=== PATIENT | female | born 1960 | race Caucasian/White ===

== ENCOUNTER → 2019-02-06 | Outpatient (CLI) | payer OTHER ==
--- NOTE | 2019-02-06 14:48 | XR ---
EXAMINATION TYPE: DATE OF EXAM: 02/06/2019 CLINICAL HISTORY: Degenerative disc disease, left lower back pain that is chronic. TECHNIQUE: Frontal, lateral, and oblique images of the lumbar spine are obtained. COMPARISON: None FINDINGS: There are 5 lumbar type vertebral bodies identified. The lumbar spine shows satisfactory alignment without evidence of acute fracture. Very minimal retrolisthesis of L3 on L4 is seen. Interv ertebral disc space narrowing is present at L5-S1. Facet arthropathy is present at L4-L5 and L5-S1. S mall anterior osteophytes are present within the lumbar spine. Vertebral body heights and disk space heights are within normal limits. The oblique images appear within normal limits. The overlying so ft tissue appears unremarkable. Extensive atherosclerosis is seen of the abdominal aorta with caliber measuring up to 2.7 cm, upper limits of normal but nonaneurysmal. IMPRESSION: No acute fracture is seen in the lumbar spine. Mild multilevel degenerative disc disease of the lumbar spine. Minimal retrolisthesis of L3 on L4 is likely on a degenerative basis.
== END | disposition home or self-care (01) ==
LOC: RADXRMAIN 13:59
PROVIDERS: ATTEND Family Medicine
DX: M51.36 Other intervertebral disc degeneration, lumbar region (principal)
CPT/HCPCS: 72110

== ENCOUNTER 2021-06-17 15:27 | Emergency (ER) | payer OTHER ==
[2021-06-17 15:50] VITALS: TEMP 98.2
[2021-06-17] MEDS ORDERED: FAMOTIDINE 20 MG/2 ML VIAL IV STA (17:30)
[2021-06-17] MEDS ORDERED: SODIUM CHLORIDE 0.9% 1,000 ML IV STA (17:30)
[2021-06-17] MEDS ORDERED: DICYCLOMINE 10 MG/ML 2 ML AMP IM STA (17:30)
[2021-06-17] MEDS ORDERED: ONDANSETRON 4 MG/2 ML VIAL IVP STA (17:30)
--- NOTE | 2021-06-17 17:33 | ED ---
General Adult HPI - General Chief complaint: Nausea/Vomiting/Diarrhea Stated complaint: vomiting Time Seen by Provider: 06/17/21 17:00 Source: patient, RN notes reviewed Mode of arrival: ambulatory Limitations: no limitations - History of Present Illness Initial comments: Patient is a pleasant 60-year-old female presenting to the emergency department with nausea vomiting. Onset of symptoms was just a morning. Patient is vomited multiple times. Patient has decreased oral intake. Patient is also had several episodes of diarrhea. No black or bloody stools. First episode of emesis did appear dark. Other ones have not. No fever. Patient has occasional abdominal cramping, mild, none at this time. No fever. - Related Data Home Medications Medication Instructions Recorded Confirmed Albuterol Sulfate [Proair Hfa] 2 puff INHALATION RT-Q4H PRN 06/17/21 06/17/21 Amitriptyline HCl [Elavil] 100 mg PO HS 06/17/21 06/17/21 Apixaban [Eliquis] 5 mg PO BID 06/17/21 06/17/21 Atorvastatin Calcium [Lipitor] 40 mg PO HS 06/17/21 06/17/21 Butalb/Acetaminophen/Caffeine 1 tab PO QID PRN 06/17/21 06/17/21 [Esgic 50-325-40 mg Tablet] Cyclobenzaprine [Flexeril] 10 mg PO TID PRN 06/17/21 06/17/21 Levothyroxine Sodium [Synthroid] 25 mcg PO MOTUWETHFRSA 06/17/21 06/17/21 Levothyroxine Sodium [Synthroid] 50 mcg PO YUNG 06/17/21 06/17/21 Sertraline HCl [Zoloft] 200 mg PO DAILY 06/17/21 06/17/21 atenoloL [Tenormin] 25 mg PO DAILY 06/17/21 06/17/21 lamoTRIgine 200 mg PO DAILY 06/17/21 06/17/21 Previous Rx's Medication Instructions Recorded Ondansetron Odt [Zofran Odt] 4 mg PO Q8HR PRN #10 tab 06/17/21 Allergies Allergy/AdvReac Type Severity Reaction Status Date / Time No Known Allergies Allergy Verified 06/17/21 17:38 Review of Systems ROS Statement: Those systems with pertinent positive or pertinent negative responses have been documented in the HPI. ROS Other: All systems not noted in ROS Statement are negative. Constitutional: Denies: fever, chills Eyes: Denies: eye pain ENT: Denies: ear pain Respiratory: Denies: cough Cardiovascular: Denies: chest pain Endocrine: Denies: fatigue Gastrointestinal: Reports: as per HPI, nausea, vomiting, diarrhea. Denies: hematemesis, melena, hematochezia Genitourinary: Denies: dysuria Musculoskeletal: Denies: back pain Skin: Denies: rash Neurological: Denies: weakness Past Medical History Past Medical History: Hypertension History of Any Multi-Drug Resistant Organisms: None Reported Past Surgical History: Pacemaker Past Psychological History: Bipolar, PTSD Smoking Status: Current some day smoker Past Alcohol Use History: None Reported Past Drug Use History: None Reported General Exam Limitations: no limitations General appearance: alert, in no apparent distress Head exam: Present: normocephalic Eye exam: Present: normal appearance Neck exam: Present: normal inspection Respiratory exam: Present: normal lung sounds bilaterally Cardiovascular Exam: Present: regular rate, normal rhythm GI/Abdominal exam: Present: soft, normal bowel sounds. Absent: distended, tenderness, guarding, rebound, rigid, pulsatile mass Extremities exam: Present: normal inspection Neurological exam: Present: alert Psychiatric exam: Present: normal affect, normal mood Skin exam: Present: normal color Course Vital Signs 06/17/21 15:46 Temperature 98.2 F Pulse Rate 78 Respiratory 18 Rate Blood Pressure 103/70 O2 Sat by Pulse 98 Oximetry EKG Findings - EKG Comments: EKG Findings:: Sinus rhythm rate of 71. WI 140. QRS 85. QT 385. QTC 408. Normal axis. Normal QRS. No acute ST change Medical Decision Making - Medical Decision Making Patient reevaluated and resting comfortably in bed, improved following medications. Patient updated on results and need for follow-up. - Lab Data Result diagrams: 06/17/21 18:41 06/17/21 18:41 Lab Results 06/17/21 06/17/21 06/17/21 Range/Units 18:41 18:41 19:50 WBC 7.9 (3.8-10.6) k/uL RBC 4.82 (3.80-5.40) m/uL Hgb 14.2 (11.4-16.0) gm/dL Hct 42.8 (34.0-46.0) % MCV 88.9 (80.0-100.0) fL MCH 29.6 (25.0-35.0) pg MCHC 33.3 (31.0-37.0) g/dL RDW 13.5 (11.5-15.5) % Plt Count 356 (150-450) k/uL MPV 6.9 Neutrophils % 65 % Lymphocytes % 23 % Monocytes % 6 % Eosinophils % 2 % Basophils % 1 % Neutrophils # 5.1 (1.3-7.7) k/uL Lymphocytes # 1.8 (1.0-4.8) k/uL Monocytes # 0.5 (0-1.0) k/uL Eosinophils # 0.2 (0-0.7) k/uL Basophils # 0.1 (0-0.2) k/uL Sodium 134 L (137-145) mmol/L Potassium 4.3 (3.5-5.1) mmol/L Chloride 104 (98-107) mmol/L Carbon Dioxide 22 (22-30) mmol/L Anion Gap 8 mmol/L BUN 22 H (7-17) mg/dL Creatinine 0.74 (0.52-1.04) mg/dL Est GFR (CKD-EPI)AfAm >90 (>60 ml/min/1.73 sqM) Est GFR (CKD-EPI)NonAf 88 (>60 ml/min/1.73 sqM) Glucose 109 H (74-99) mg/dL Calcium 9.5 (8.4-10.2) mg/dL Total Bilirubin 0.5 (0.2-1.3) mg/dL AST 29 (14-36) U/L ALT 17 (4-34) U/L Alkaline Phosphatase 100 (38-126) U/L Total Protein 7.5 (6.3-8.2) g/dL Albumin 4.0 (3.5-5.0) g/dL Amylase 53 (30-110) U/L Lipase 40 (23-300) U/L Coronavirus (PCR) Not Detected (Not Detectd) Disposition Clinical Impression: Vomiting Disposition: HOME SELF-CARE Condition: Stable Instructions (If sedation given, give patient instructions): Acute Nausea and Vomiting (ED) Additional Instructions: [id number] Pepcid. Prescription for nausea medicine has been sent to your pharmacy. Please follow-up with primary care physician in the next day or 2 for recheck. Return for uncontrolled vomiting, not tolerating fluids, fevers, increased pain, worsening or change in symptoms or other concerns. Prescriptions: Ondansetron Odt [Zofran Odt] 4 mg PO Q8HR PRN #10 tab PRN Reason: Nausea Is patient prescribed a controlled substance at d/c from ED?: No Referrals: Va Fay MD [Primary Care Provider] - 1-2 days Time of Disposition: 20:40
[2021-06-17 18:55] LABS: Basophils # (A) 0.1 k/uL (0-0.2); Basophils % (A) 1 %; Eosinophils # (A) 0.2 k/uL (0-0.7); Eosinophils % (A) 2 %; HCT 42.8 % (34.0-46.0); HGB 14.2 gm/dL (11.4-16.0); Lymphocytes # (A) 1.8 k/uL (1.0-4.8); Lymphocytes % (A) 23 %; MCH 29.6 pg (25.0-35.0); MCHC 33.3 g/dL (31.0-37.0); MCV 88.9 fL (80.0-100.0); Mean Platelet Volume 6.9; Monocytes # (A) 0.5 k/uL (0-1.0); Monocytes % (A) 6 %; Neutrophils # (A) 5.1 k/uL (1.3-7.7); Neutrophils % (A) 65 %; Platelet Count 356 k/uL (150-450); RBC 4.82 m/uL (3.80-5.40); RDW 13.5 % (11.5-15.5); WBC 7.9 k/uL (3.8-10.6)
[2021-06-17 19:12] LABS: ALT 17 U/L (4-34); AST 29 U/L (14-36); African American GFR (CKD) >90 (>60 ml/min/1.73 sqM); Alkaline Phosphatase 100 U/L (38-126); Amylase 53 U/L (30-110); Anion Gap 8 mmol/L; Blood Urea Nitrogen 22 mg/dL (7-17); Calcium 9.5 mg/dL (8.4-10.2); Carbon Dioxide 22 mmol/L (22-30); Chloride 104 mmol/L (98-107); Glucose 109 mg/dL (74-99); Lipase 40 U/L (23-300); Non-African American GFR(CKD) 88 (>60 ml/min/1.73 sqM); Potassium 4.3 mmol/L (3.5-5.1); Sodium 134 mmol/L (137-145); Total Bilirubin 0.5 mg/dL (0.2-1.3); Total Protein 7.5 g/dL (6.3-8.2)
[2021-06-17] MEDS ORDERED: ACETAMINOPHEN TAB 325 MG TAB PO STA (20:54)
[2021-06-17 22:17] VITALS: BP 127/72; PULSE 68; RESP 16
== END 2021-06-17 22:18 | disposition home or self-care (01) ==
LOC: EC 15:27
DX: R11.2 Nausea with vomiting, unspecified (principal); R19.7 Diarrhea, unspecified; F17.200 Nicotine dependence, unspecified, uncomplicated; I10 Essential (primary) hypertension; Z79.899 Other long term (current) drug therapy; Z20.822 Contact with and (suspected) exposure to COVID-19
CPT/HCPCS: 36415; 80053; 82150; 83690; 85025; 87635; 99284; 96374; 96375; 96361; 96372; J0500; J2405

== ENCOUNTER 2022-04-13 15:49 | Emergency (ER) | payer OTHER ==
--- NOTE | 2022-04-13 17:42 | XR ---
EXAMINATION TYPE: XR chest 2V DATE OF EXAM: 04/13/2022 COMPARISON: NONE HISTORY: Productive cough. TECHNIQUE: Frontal and lateral views of the chest are obtained. FINDINGS: There is no focal air space opacity, pleural effusion, or pneumothorax seen. The cardiac silhouette size is within normal limits. Dual-lead pacemaker is noted. The osseous structures are in tact. IMPRESSION: No acute pulmonary infiltrate.
--- NOTE | 2022-04-13 17:53 | ED ---
URI HPI - General Chief Complaint: Upper Respiratory Infection Stated Complaint: cough Time Seen by Provider: 04/13/22 16:03 Source: patient Mode of arrival: ambulatory Limitations: no limitations - History of Present Illness Initial Comments: Patient is a 61-year-old female presenting with chief complaint of cough. Patient states that she had a cough for the last 2 weeks. It is productive of white sputum. Patient does admit to smoking half pack per day. She admits to body aches and fatigue. Admits to sore throat. No congestion, chest pain, dif ficulty breathing, nausea, vomiting, abdominal pain. Patient states she had a negative Covid test at home today. - Related Data Home Medications Medication Instructions Recorded Confirmed Albuterol Sulfate [Proair Hfa] 2 puff INHALATION RT-Q4H PRN 06/17/21 06/17/21 Amitriptyline HCl [Elavil] 100 mg PO HS 06/17/21 06/17/21 Apixaban [Eliquis] 5 mg PO BID 06/17/21 06/17/21 Atorvastatin Calcium [Lipitor] 40 mg PO HS 06/17/21 06/17/21 Butalb/Acetaminophen/Caffeine 1 tab PO QID PRN 06/17/21 06/17/21 [Esgic 50-325-40 mg Tablet] Cyclobenzaprine [Flexeril] 10 mg PO TID PRN 06/17/21 06/17/21 Levothyroxine Sodium [Synthroid] 25 mcg PO MOTUWETHFRSA 06/17/21 06/17/21 Levothyroxine Sodium [Synthroid] 50 mcg PO YUNG 06/17/21 06/17/21 Sertraline HCl [Zoloft] 200 mg PO DAILY 06/17/21 06/17/21 atenoloL [Tenormin] 25 mg PO DAILY 06/17/21 06/17/21 lamoTRIgine 200 mg PO DAILY 06/17/21 06/17/21 Previous Rx's Medication Instructions Recorded Ondansetron Odt [Zofran Odt] 4 mg PO Q8HR PRN #10 tab 06/17/21 Albuterol Sulfate [Albuterol 1 puff PO Q4-6H PRN #8.5 gm 04/13/22 Sulfate Hfa] Azithromycin [Zithromax Z Pack] 1 tab PO DIRECTED #6 tab 04/13/22 methylPREDNISolone Dose Pack 4 mg PO DIRECTED #1 packet 04/13/22 [Medrol Dose Pack] Allergies Allergy/AdvReac Type Severity Reaction Status Date / Time latex Allergy Rash/Hives Verified 04/13/22 15:54 Review of Systems ROS Statement: Those systems with pertinent positive or pertinent negative responses have been documented in the HPI. ROS Other: All systems not noted in ROS Statement are negative. Past Medical History Past Medical History: Hypertension History of Any Multi-Drug Resistant Organisms: None Reported Past Surgical History: Pacemaker Past Psychological History: Bipolar, PTSD Smoking Status: Current some day smoker Past Alcohol Use History: None Reported Past Drug Use History: None Reported General Exam Limitations: no limitations General appearance: alert, in no apparent distress Head exam: Present: atraumatic, normocephalic, normal inspection Eye exam: Present: normal appearance ENT exam: Present: normal exam, normal oropharynx, mucous membranes moist, TM's normal bilaterally Neck exam: Present: normal inspection, full ROM Respiratory exam: Present: normal lung sounds bilaterally. Absent: respiratory distress, wheezes, rales, rhonchi, stridor Cardiovascular Exam: Present: regular rate, normal rhythm, normal heart sounds. Absent: systolic murmur, diastolic murmur, rubs, gallop, clicks Neurological exam: Present: alert, oriented X3, CN II-XII intact Psychiatric exam: Present: normal affect, normal mood Skin exam: Present: warm, dry, intact, normal color. Absent: rash Course Vital Signs 04/13/22 04/13/22 04/13/22 15:50 17:13 18:47 Temperature 98.5 F Pulse Rate 74 74 Respiratory 16 20 Rate Blood Pressure 185/86 O2 Sat by Pulse 97 Oximetry 04/13/22 04/13/22 18:53 18:56 Temperature 98.8 F Pulse Rate 74 80 Respiratory 18 Rate Blood Pressure 163/97 O2 Sat by Pulse 98 Oximetry Medical Decision Making - Medical Decision Making Patient is a 61-year-old female presenting with chief complaint of productive cough for the last 2 weeks. On physical examination heart and lungs are clear to auscultation and vital signs are stable. Patient is negative for Covid, influenza, RSV. Chest x-ray shows no acute cardiopulmonary process. Patient's symptoms are likely consistent with acute bronchitis. Will treat with Z-Antony, Medrol Dosepak, and albuterol inhaler. Patient is agreeable with this plan. Follow-up with PCP. Report back to ER with any new or worsening symptoms. Discussed return parameters and answered all questions. Patient conveyed verbal understanding and agreed to the plan. I discussed this case in detail with my attending Dr. Tucker Was pt. sent in by a medical professional or institution? @ No Did you speak to anyone other than the patient for history? @ No Did you review nursing and triage notes? @ Reviewed and agree Were old charts reviewed? @ No Differential Diagnosis? @ Differential includes pneumonia, bronchitis, viral illness, pulmonary embolism, sinusitis, this is not meant to be a comprehensive list EKG interpreted by me (3pts min.)? @ [none] X-rays interpreted by me (1pt min.)? @ X-ray interpreted by myself as well as the radiologist, shows no evidence of acute cardiopulmonary process CT interpreted by me (1pt min.)? @ [none] U/S interpreted by me (1pt. min.)? @ [none] What testing was considered but not performed? (CT, X-rays, U/S, labs)? Why? @ CBC and CMP were considered for infectious process, however do not believe will change the course of sedation treatment plan. Patient does not have presentation consistent with pulmonary embolism, d-dimer is not necessary at this time What meds were considered but not given? Why? @ [none] Did you discuss the management of the patient with other professionals? @ Case discussed with my attending Dr. Tucker Did you reconcile home meds? @ [none] Was smoking cessation discussed for >3mins.? @ [none] Was critical care preformed (if so, how long)? @ [none] Were there social determinants of health that impacted care today? How? (Homelessness, low income, unemployed, alcoholism, drug addiction, t ransportation, low edu. Level, literacy, decrease access to med. care, group home, rehab)? @ No Was there de-escalation of care discussed even if they declined? (Discuss DNR or withdrawal of care, Hospice)? @ No What co-morbidities impacted this encounter? (DM, HTN, Smoking, COPD, CAD, Cancer, CVA, Hep., AIDS, mental health diagnosis, sleep apnea, morbid obesity)? @Hypertension Was patient admitted / discharged? @Patient was discharged home, treated for acute bronchitis with azithromycin, Medrol Dosepak, and albuterol inhaler. Undiagnosed new problem with uncertain prognosis? @ [none] Drug Therapy requiring intensive monitoring for toxicity (Heparin, Nitro, Insulin, Cardizem)? @ [none] Were any procedures done? @ [none] Diagnosis/symptom? @Acute bronchitis Acute, or Chronic, or Acute on Chronic? @Acute Uncomplicated (without systemic symptoms) or Complicated (systemic symptoms)? @uncomplicated Side effects of treatment? @ [none] Exacerbation, Progression, or Severe Exacerbation] @ [no] Poses a threat to life or bodily function? @ [no] - Lab Data Lab Results 04/13/22 Range/Units 16:49 Influenza Type A (PCR) Not Detected (Not Detectd) Influenza Type B (PCR) Not Detected (Not Detectd) RSV (PCR) Not Detected (Not Detectd) SARS-CoV-2 (PCR) Not Detected (Not Detectd) Disposition Clinical Impression: Bronchitis Disposition: HOME SELF-CARE Condition: Good Instructions (If sedation given, give patient instructions): Acute Bronchitis (ED) Additional Instructions: Follow-up with PCP. Report back to ER with any new or worsening symptoms. Take medication as prescribed. Prescriptions: Albuterol Sulfate [Albuterol Sulfate Hfa] 1 puff PO Q4-6H PRN #8.5 gm PRN Reason: Cough methylPREDNISolone Dose Pack [Medrol Dose Pack] 4 mg PO DIRECTED #1 packet Azithromycin [Zithromax Z Pack] 1 tab PO DIRECTED #6 tab Is patient prescribed a controlled substance at d/c from ED?: No Referrals: Va Fay MD [Primary Care Provider] - 1-2 days Time of Disposition: 18:43
[2022-04-13] MEDS ORDERED: IPRATROPIUM-ALBUTEROL 3 ML NEB INHALATION STA (18:23)
[2022-04-13 18:59] VITALS: BP 163/97; PULSE 80; RESP 18; TEMP 98.8
== END 2022-04-13 18:56 | disposition home or self-care (01) ==
LOC: EC 15:49
DX: J40 Bronchitis, not specified as acute or chronic (principal); I10 Essential (primary) hypertension; F17.200 Nicotine dependence, unspecified, uncomplicated; F31.9 Bipolar disorder, unspecified; Z88.3 Allergy status to other anti-infective agents; Z20.822 Contact with and (suspected) exposure to COVID-19
CPT/HCPCS: 71046; 87636; 94640; 99283

== ENCOUNTER 2023-03-04 05:42 | Emergency (ER) | payer OTHER ==
[2023-03-04 06:00] VITALS: RESP 18
[2023-03-04] MEDS ORDERED: KETOROLAC 15 MG/ML 1 ML VIAL IVP STA ×2 (06:11→07:33)
[2023-03-04] MEDS ORDERED: DIPH,PERTUS(ACELL)TETVAC-LF 0.5 ML VIAL IM ONE (06:11)
[2023-03-04] MEDS ORDERED: HYDROmorphone 1 MG/ML 1 ML SYRINGE IVP STA (06:11)
[2023-03-04] MEDS ORDERED: LIDOCAINE 1% INJ 10MG/ML (20 ML MDV) SQ ONE (06:11)
[2023-03-04] MEDS ORDERED: AMPICILLIN-SULBACTAM 3 GM in SODIUM CHLORIDE 0.9% 100 ML IVPB STA (06:12)
--- NOTE | 2023-03-04 06:32 | ED ---
Animal Bite HPI - General Chief Complaint: Animal Bite Stated Complaint: Hand injury Time Seen by Provider: 03/04/23 05:58 Source: patient, RN notes reviewed Mode of arrival: ambulatory Limitations: no limitations - History of Present Illness Initial Comments: This is a 62-year-old female who presents to the emergency department for a dog bite to the left hand. Patient was with her sister who has two Chows. They were getting into a fight and she tried to break them up, when one of them proceeded to bite her left hand. The dogs are up-to-date on all immunizations. Patient is unsure when her last tetanus vaccine was. MD Complaint: animal bite - Related Data Home Medications Medication Instructions Recorded Confirmed Albuterol Sulfate [Proair Hfa] 2 puff INHALATION RT-Q4H PRN 06/17/21 06/17/21 Amitriptyline HCl [Elavil] 100 mg PO HS 06/17/21 06/17/21 Apixaban [Eliquis] 5 mg PO BID 06/17/21 06/17/21 Atorvastatin Calcium [Lipitor] 40 mg PO HS 06/17/21 06/17/21 Butalb/Acetaminophen/Caffeine 1 tab PO QID PRN 06/17/21 06/17/21 [Esgic 50-325-40 mg Tablet] Cyclobenzaprine [Flexeril] 10 mg PO TID PRN 06/17/21 06/17/21 Levothyroxine Sodium [Synthroid] 25 mcg PO MOTUWETHFRSA 06/17/21 06/17/21 Levothyroxine Sodium [Synthroid] 50 mcg PO YUNG 06/17/21 06/17/21 Sertraline HCl [Zoloft] 200 mg PO DAILY 06/17/21 06/17/21 atenoloL [Tenormin] 25 mg PO DAILY 06/17/21 06/17/21 lamoTRIgine 200 mg PO DAILY 06/17/21 06/17/21 Previous Rx's Medication Instructions Recorded Ondansetron Odt [Zofran Odt] 4 mg PO Q8HR PRN #10 tab 06/17/21 Albuterol Sulfate [Albuterol 1 puff PO Q4-6H PRN #8.5 gm 04/13/22 Sulfate Hfa] Azithromycin [Zithromax Z Pack] 1 tab PO DIRECTED #6 tab 04/13/22 methylPREDNISolone Dose Pack 4 mg PO DIRECTED #1 packet 04/13/22 [Medrol Dose Pack] Amoxic-Pot Clav 875-125Mg 1 tab PO Q12HR 10 Days #20 tab 03/04/23 [Augmentin 875-125] HYDROcodone/APAP 5-325MG [[place] 1 tab PO Q6HR PRN 3 Days #12 tab 03/04/23 5-325] Allergies Allergy/AdvReac Type Severity Reaction Status Date / Time latex Allergy Rash/Hives Verified 03/04/23 05:55 Review of Systems ROS Statement: Those systems with pertinent positive or pertinent negative responses have been documented in the HPI. ROS Other: All systems not noted in ROS Statement are negative. Past Medical History Past Medical History: Hypertension History of Any Multi-Drug Resistant Organisms: None Reported Past Surgical History: Pacemaker Past Psychological History: Bipolar, PTSD Smoking Status: Current some day smoker Past Alcohol Use History: None Reported Past Drug Use History: Marijuana General Exam Limitations: no limitations General appearance: alert, in distress Head exam: Present: atraumatic, normocephalic, normal inspection Respiratory exam: Present: normal lung sounds bilaterally. Absent: respiratory distress, wheezes, rales, rhonchi, stridor Cardiovascular Exam: Present: regular rate, normal rhythm, normal heart sounds. Absent: systolic murmur, diastolic murmur, rubs, gallop, clicks Extremities exam: Present: other (4cm flap laceration to the dorsal aspect of the left hand with visible tendon. Multiple other smaller and more superificial scattered lacerations) Neurological exam: Present: alert, oriented X3, CN II-XII intact Psychiatric exam: Present: normal affect, normal mood Course Vital Signs 03/04/23 03/04/23 03/04/23 05:53 07:00 08:05 Temperature 98.5 F Pulse Rate 77 67 68 Respiratory 18 18 18 Rate Blood Pressure 149/77 145/69 148/73 O2 Sat by Pulse 98 97 98 Oximetry Procedures - Laceration Laceration #1 Consent Obtained: verbal consent Indication: laceration Site: other (left hand) Size (cm): 4 Description: linear, flap Depth: simple, single layer Anesthetic Used: lidocaine 1% Anesthesia Technique: local infiltration Amount (mls): 5 Pre-repair: wound explored, irrigated extensively Type of Sutures: nylon Size of Sutures: 5-0 Number of Sutures: 6 Technique: simple, interrupted Laceration #2 Consent Obtained: verbal consent Indication: laceration Site: other (left middle finger) Size (cm): 2 Description: linear Depth: simple, single layer Anesthetic Used: lidocaine 1% Anesthesia Technique: local infiltration Amount (mls): 3 Pre-repair: wound explored, irrigated extensively Type of Sutures: nylon Size of Sutures: 5-0 Number of Sutures: 3 Technique: simple, interrupted Laceration #3 Consent Obtained: verbal consent Indication: laceration Site: other (left fourth finger) Size (cm): 2 Description: linear Depth: simple, single layer Anesthetic Used: lidocaine 1% Anesthesia Technique: local infiltration Amount (mls): 2 Pre-repair: wound explored, irrigated extensively Type of Sutures: nylon Size of Sutures: 5-0 Number of Sutures: 3 Technique: simple, interrupted Medical Decision Making - Medical Decision Making This is a 62-year-old female who presents to the emergency department for a dog bite. Was pt. sent in by a medical professional or institution? @ -No Did you speak to anyone other than the patient for history? @ -No Did you review nursing and triage notes? @ -Yes, and I agree, it is accurate with regards to the patient's symptoms. Were old charts reviewed? @ -No Differential Diagnosis? @ -Not applicable EKG interpreted by me (3pts min.)? @ -Not obtained X-rays interpreted by me (1pt min.)? @ -Not obtained CT interpreted by me (1pt min.)? @ -Not obtained U/S interpreted by me (1pt. min.)? @ -Not obtained What testing was considered but not performed? (CT, X-rays, U/S, labs)? Why? @ -None What meds were considered but not given? Why? @ -None Did you discuss the management of the patient with other professionals? @ -No Did you reconcile home meds? @ -No Was smoking cessation discussed for >3mins.? @ -No Was critical care preformed (if so, how long)? @ -No Were there social determinants of health that impacted care today? How? (Homelessness, low income, unemployed, alcoholism, drug addiction, transportation, low edu. Level, literacy, decrease access to med. care, long-term, rehab)? @ -No Was there de-escalation of care discussed even if they declined? (Discuss DNR or withdrawal of care, Hospice)? @ -No What co-morbidities impacted this encounter? (DM, HTN, Smoking, COPD, CAD, Cancer, CVA, Hep., AIDS, mental health diagnosis, sleep apnea, morbid obesity)? @ -None Was patient admitted / discharged? @ -Discharged. Patient's hand was thoroughly cleansed. Tetanus vaccine was updated. She was given a dose of Unasyn in the emergency department. 3 of the bite wounds were fairly deep and required repair with sutures. These were loosely approximated to allow for drainage due to the infection risk. There were other multiple superficial wounds that did not require repair. She was given prescriptions for Mil[place] and Augmentin with dosing instructions reviewed. I was willing to give her a prescription for the Mil[place] given that she is on Eliquis and cannot take NSAIDs, and given the extent of the wound. She was given strict return parameters and advised that this is at high risk for infection. She was discharged home in stable condition with instructions to return in 7-10 days for suture removal. Undiagnosed new problem with uncertain prognosis? @ -None Drug Therapy requiring intensive monitoring for toxicity (Heparin, Nitro, Insulin, Cardizem)? @ -None Were any procedures done? @ -Laceration repair with sutures Diagnosis/symptom? @ -Dog bite Acute, or Chronic, or Acute on Chronic? @ -Acute Uncomplicated (without systemic symptoms) or Complicated (systemic symptoms)? @ -Uncomplicated Side effects of treatment? @ -None Exacerbation, Progression, or Severe Exacerbation] @ -Not applicable Poses a threat to life or bodily function? @ -No Return precautions reviewed in depth, the patient is instructed to return to the emergency department with any new, worsening, or concerning symptoms. Patient verbalized understanding. This case was discussed in detail with the attending ED physician, Dr. Tucker. Presentation, findings, and treatment plan discussed in detail as well. Disposition Clinical Impression: Dog bite Disposition: HOME SELF-CARE Instructions (If sedation given, give patient instructions): Animal Bite (ED), Care For Your Stitches (ED) Additional Instructions: Return to the emergency department with any new, worsening, or concerning symptoms and in 7-10 days for removal of the stitches. Take the antibiotic as prescribed for 10 days. Take the Mil[place] sparingly when your pain is the most severe and be aware that it may make you drowsy. Follow up with your primary care provider in 1-2 days. Prescriptions: Amoxic-Pot Clav 875-125Mg [Augmentin 875-125] 1 tab PO Q12HR 10 Days #20 tab HYDROcodone/APAP 5-325MG [[place] 5-325] 1 tab PO Q6HR PRN 3 Days #12 tab PRN Reason: Pain Is patient prescribed a controlled substance at d/c from ED?: Yes When asked, does pt state using other controlled substances?: No If prescribed controlled substance>3 days was MAPS reviewed?: Prescribed <3 Days Referrals: Va Fay MD [Primary Care Provider] - 1-2 days
[2023-03-04] MEDS ORDERED: HYDROmorphone 0.5 MG/0.5 ML SYRINGE IVP STA (07:33)
[2023-03-04 08:23] VITALS: BP 148/73
[2023-03-04 09:14] VITALS: PULSE 62; TEMP 98.1
== END 2023-03-04 09:05 | disposition home or self-care (01) ==
LOC: EC 05:42
DX: S61.215A Laceration without foreign body of left ring finger without damage to nail, initial encounter (principal); S61.213A Laceration without foreign body of left middle finger without damage to nail, initial encounter; I10 Essential (primary) hypertension; F31.9 Bipolar disorder, unspecified; F17.200 Nicotine dependence, unspecified, uncomplicated; F12.90 Cannabis use, unspecified, uncomplicated; Z91.040 Latex allergy status; Z79.01 Long term (current) use of anticoagulants; Z23 Encounter for immunization; Z79.899 Other long term (current) drug therapy; W54.0XXA Bitten by dog, initial encounter
CPT/HCPCS: 90715; 99283; 96365; 96375 ×2; 96376 ×2; 12004; 90471; J2001; J1170 ×2; J0295; J1885

== ENCOUNTER 2023-07-04 13:22 | Emergency (ER) | payer OTHER ==
[2023-07-04 13:31] VITALS: RESP 16
--- NOTE | 2023-07-04 13:51 | ED ---
GI Bleed HPI - General Chief complaint: GI Bleed Stated complaint: Vomiting w/blood Time Seen by Provider: 07/04/23 13:35 Source: patient, RN notes reviewed Mode of arrival: ambulatory Limitations: no limitations - History of Present Illness Initial comments: This is a 62-year-old female who presents to the emergency department for an episode of hematemesis. States that last night she felt generally unwell, and proceeded to vomit. States that when she threw up, it was essentially all dark red blood. However, states that when she threw up it was onto dark pavement so she cannot be entirely sure of the shade of red. She has not thrown up or felt nauseous since, but states that she does have a headache. She is on Eliquis for a-fib. Denies any history of similar symptoms in the past. Also denies any blood in her stool or dark/tarry stool. MD complaint: gross hematemesis - Related Data Home Medications Medication Instructions Recorded Confirmed Albuterol Sulfate [Proair Hfa] 2 puff INHALATION RT-Q4H PRN 06/17/21 06/17/21 Amitriptyline HCl [Elavil] 100 mg PO HS 06/17/21 06/17/21 Apixaban [Eliquis] 5 mg PO BID 06/17/21 06/17/21 Atorvastatin Calcium [Lipitor] 40 mg PO HS 06/17/21 06/17/21 Butalb/Acetaminophen/Caffeine 1 tab PO QID PRN 06/17/21 06/17/21 [Esgic 50-325-40 mg Tablet] Cyclobenzaprine [Flexeril] 10 mg PO TID PRN 06/17/21 06/17/21 Levothyroxine Sodium [Synthroid] 25 mcg PO MOTUWETHFRSA 06/17/21 06/17/21 Levothyroxine Sodium [Synthroid] 50 mcg PO YUNG 06/17/21 06/17/21 Sertraline HCl [Zoloft] 200 mg PO DAILY 06/17/21 06/17/21 atenoloL [Tenormin] 25 mg PO DAILY 06/17/21 06/17/21 lamoTRIgine 200 mg PO DAILY 06/17/21 06/17/21 Previous Rx's Medication Instructions Recorded Ondansetron Odt [Zofran Odt] 4 mg PO Q8HR PRN #10 tab 06/17/21 Albuterol Sulfate [Albuterol 1 puff PO Q4-6H PRN #8.5 gm 04/13/22 Sulfate Hfa] Azithromycin [Zithromax Z Pack] 1 tab PO DIRECTED #6 tab 04/13/22 methylPREDNISolone Dose Pack 4 mg PO DIRECTED #1 packet 04/13/22 [Medrol Dose Pack] Amoxic-Pot Clav 875-125Mg 1 tab PO Q12HR 10 Days #20 tab 03/04/23 [Augmentin 875-125] HYDROcodone/APAP 5-325MG [[place] 1 tab PO Q6HR PRN 3 Days #12 tab 03/04/23 5-325] Ondansetron Odt [Zofran Odt] 4 mg PO Q8HR PRN #15 tab 07/04/23 Pantoprazole [Protonix] 40 mg PO DAILY #15 tab 07/04/23 Allergies Allergy/AdvReac Type Severity Reaction Status Date / Time latex Allergy Rash/Hives Verified 06/28/23 16:17 Review of Systems ROS Statement: Those systems with pertinent positive or pertinent negative responses have been documented in the HPI. ROS Other: All systems not noted in ROS Statement are negative. Past Medical History Past Medical History: Hypertension History of Any Multi-Drug Resistant Organisms: None Reported Past Surgical History: Pacemaker Past Psychological History: Bipolar, PTSD Smoking Status: Current some day smoker Past Alcohol Use History: None Reported Past Drug Use History: Marijuana General Exam Limitations: no limitations General appearance: alert, in no apparent distress Head exam: Present: atraumatic, normocephalic, normal inspection Respiratory exam: Present: normal lung sounds bilaterally. Absent: respiratory distress, wheezes, rales, rhonchi, stridor Cardiovascular Exam: Present: regular rate, normal rhythm, normal heart sounds. Absent: systolic murmur, diastolic murmur, rubs, gallop, clicks GI/Abdominal exam: Present: soft, normal bowel sounds. Absent: distended, tenderness, guarding, rebound, rigid Neurological exam: Present: alert, oriented X3, CN II-XII intact Psychiatric exam: Present: normal affect, normal mood Skin exam: Present: warm, dry, intact, normal color. Absent: rash Course Vital Signs 07/04/23 07/04/23 13:28 16:21 Temperature 97.6 F 98.7 F Pulse Rate 88 87 Respiratory 16 16 Rate Blood Pressure 167/89 169/87 O2 Sat by Pulse 97 97 Oximetry Medical Decision Making - Medical Decision Making This is a 62 year old female who presents to the emergency department for an episode of hematemesis. Was pt. sent in by a medical professional or institution? @ -No Did you speak to anyone other than the patient for history? @ -No Did you review nursing and triage notes? @ -Yes, and I agree, it is accurate with regards to the patient's symptoms. Were old charts reviewed? @ -No Differential Diagnosis? @ -Differential GI Bleed: Esophageal varices, aortoenteric fistula, Yojana-Akers, gastritis, peptic ulcer disease, diverticulosis, inflammatory bowel disease, hemorrhoids, fissure, colitis, malignancy, Meckels diverticulum, this is not meant to be an all- inclusive list. EKG interpreted by me (3pts min.)? @ -EKG interpreted by me demonstrating the following: Sinus rhythm. Ventricular rate 69 bpm, MA interval 157 ms, QRS duration 93 ms, QTc 409 ms. X-rays interpreted by me (1pt min.)? @ -Not obtained CT interpreted by me (1pt min.)? @ -CTA of the abdomen and pelvis obtained. My interpretation identifies no evidence of an active GI bleed. U/S interpreted by me (1pt. min.)? @ -Not obtained What testing was considered but not performed? (CT, X-rays, U/S, labs)? Why? @ -None What meds were considered but not given? Why? @ -None Did you discuss the management of the patient with other professionals? @ -No Did you reconcile home meds? @ -No Was smoking cessation discussed for >3mins.? @ -No Was critical care preformed (if so, how long)? @ -No Were there social determinants of health that impacted care today? How? (Homelessness, low income, unemployed, alcoholism, drug addiction, transportation, low edu. Level, literacy, decrease access to med. care, [facility], rehab)? @ -No Was there de-escalation of care discussed even if they declined? (Discuss DNR or withdrawal of care, Hospice)? @ -No What co-morbidities impacted this encounter? (DM, HTN, Smoking, COPD, CAD, Cancer, CVA, Hep., AIDS, mental health diagnosis, sleep apnea, morbid obesity)? @ -A-fib. Was patient admitted / discharged? @ -Discharged. Lab work demonstrates signs of dehydration and a mildly elevated lactic acid. Hemoglobin WNL. COVID, influenza, and RSV testing negative. Recommended a stool occult, however patient refused. CTA of the abdomen and pelvis obtained. No definitive active GI bleeding was identified. She does have a questionable area of thickening in the antral region of the stomach of indeterminate etiology. They advised direct visualization to exclude malignancy. Symptoms well controlled in the emergency department. Strongly recommended admission for observation, however patient refused and states that she will return if anything worsens or changes. Rx for pantoprazole and zofran provided with dosing instructions reviewed. Advised Tylenol as needed for pain relief. Patient discharged home in stable condition with strict return parameters and advised to follow up with her PCP. Undiagnosed new problem with uncertain prognosis? @ -None Drug Therapy requiring intensive monitoring for toxicity (Heparin, Nitro, Insulin, Cardizem)? @ -None Were any procedures done? @ -None Diagnosis/symptom? @ -Hematemesis Acute, or Chronic, or Acute on Chronic? @ -Acute Uncomplicated (without systemic symptoms) or Complicated (systemic symptoms)? @ -Uncomplicated Side effects of treatment? @ -None Exacerbation, Progression, or Severe Exacerbation] @ -Not applicable Poses a threat to life or bodily function? @ -No Return precautions reviewed in depth, the patient is instructed to return to the emergency department with any new, worsening, or concerning symptoms. Patient verbalized understanding. This case was discussed in detail with the attending ED physician, Dr. Patton. Presentation, findings, and treatment plan discussed in detail as well. - Lab Data Result diagrams: 07/04/23 14:20 07/04/23 14:20 Lab Results 07/04/23 07/04/23 07/04/23 Range/Units 14:20 14:20 14:20 WBC 8.9 (3.8-10.6) k/uL RBC 4.49 (3.80-5.40) m/uL Hgb 13.0 (11.4-16.0) gm/dL Hct 40.1 (34.0-46.0) % MCV 89.1 (80.0-100.0) fL MCH 28.9 (25.0-35.0) pg MCHC 32.5 (31.0-37.0) g/dL RDW 14.1 (11.5-15.5) % Plt Count 317 (150-450) k/uL MPV 7.8 Neutrophils % 71 % Lymphocytes % 19 % Monocytes % 4 % Eosinophils % 4 % Basophils % 1 % Neutrophils # 6.3 (1.3-7.7) k/uL Lymphocytes # 1.7 (1.0-4.8) k/uL Monocytes # 0.4 (0-1.0) k/uL Eosinophils # 0.4 (0-0.7) k/uL Basophils # 0.0 (0-0.2) k/uL PT 10.1 (10.0-12.5) sec INR 0.9 (<1.2) APTT 25.6 (22.0-30.0) sec Sodium 139 (137-145) mmol/L Potassium 4.3 (3.5-5.1) mmol/L Chloride 112 H (98-107) mmol/L Carbon Dioxide 20 L (22-30) mmol/L Anion Gap 7 mmol/L BUN 19 H (7-17) mg/dL Creatinine 0.55 (0.52-1.04) mg/dL Est GFR (CKD-EPI)AfAm >90 (>60 ml/min/1.73 sqM) Est GFR (CKD-EPI)NonAf >90 (>60 ml/min/1.73 sqM) Glucose 117 H (74-99) mg/dL Lactic Ac Sepsis Rflx Plasma Lactic Acid Jorge Luis (0.7-2.0) mmol/L Calcium 9.4 (8.4-10.2) mg/dL Magnesium 1.8 (1.6-2.3) mg/dL Total Bilirubin 0.3 (0.2-1.3) mg/dL AST 23 (14-36) U/L ALT 15 (4-34) U/L Alkaline Phosphatase 121 (38-126) U/L Troponin I (0.000-0.034) ng/mL Total Protein 7.2 (6.3-8.2) g/dL Albumin 4.2 (3.5-5.0) g/dL Lipase 216 (23-300) U/L Influenza Type A (PCR) (Not Detectd) Influenza Type B (PCR) (Not Detectd) RSV (PCR) (Not Detectd) SARS-CoV-2 (PCR) (Not Detectd) 07/04/23 07/04/23 07/04/23 Range/Units 14:20 14:20 14:46 WBC (3.8-10.6) k/uL RBC (3.80-5.40) m/uL Hgb (11.4-16.0) gm/dL Hct (34.0-46.0) % MCV (80.0-100.0) fL MCH (25.0-35.0) pg MCHC (31.0-37.0) g/dL RDW (11.5-15.5) % Plt Count (150-450) k/uL MPV Neutrophils % % Lymphocytes % % Monocytes % % Eosinophils % % Basophils % % Neutrophils # (1.3-7.7) k/uL Lymphocytes # (1.0-4.8) k/uL Monocytes # (0-1.0) k/uL Eosinophils # (0-0.7) k/uL Basophils # (0-0.2) k/uL PT (10.0-12.5) sec INR (<1.2) APTT (22.0-30.0) sec Sodium (137-145) mmol/L Potassium (3.5-5.1) mmol/L Chloride (98-107) mmol/L Carbon Dioxide (22-30) mmol/L Anion Gap mmol/L BUN (7-17) mg/dL Creatinine (0.52-1.04) mg/dL Est GFR (CKD-EPI)AfAm (>60 ml/min/1.73 sqM) Est GFR (CKD-EPI)NonAf (>60 ml/min/1.73 sqM) Glucose (74-99) mg/dL Lactic Ac Sepsis Rflx Plasma Lactic Acid Jorge Luis 2.3 H* (0.7-2.0) mmol/L Calcium (8.4-10.2) mg/dL Magnesium (1.6-2.3) mg/dL Total Bilirubin (0.2-1.3) mg/dL AST (14-36) U/L ALT (4-34) U/L Alkaline Phosphatase (38-126) U/L Troponin I <0.012 (0.000-0.034) ng/mL Total Protein (6.3-8.2) g/dL Albumin (3.5-5.0) g/dL Lipase (23-300) U/L Influenza Type A (PCR) Not Detected (Not Detectd) Influenza Type B (PCR) Not Detected (Not Detectd) RSV (PCR) Not Detected (Not Detectd) SARS-CoV-2 (PCR) Not Detected (Not Detectd) 07/04/23 Range/Units 15:19 WBC (3.8-10.6) k/uL RBC (3.80-5.40) m/uL Hgb (11.4-16.0) gm/dL Hct (34.0-46.0) % MCV (80.0-100.0) fL MCH (25.0-35.0) pg MCHC (31.0-37.0) g/dL RDW (11.5-15.5) % Plt Count (150-450) k/uL MPV Neutrophils % % Lymphocytes % % Monocytes % % Eosinophils % % Basophils % % Neutrophils # (1.3-7.7) k/uL Lymphocytes # (1.0-4.8) k/uL Monocytes # (0-1.0) k/uL Eosinophils # (0-0.7) k/uL Basophils # (0-0.2) k/uL PT (10.0-12.5) sec INR (<1.2) APTT (22.0-30.0) sec Sodium (137-145) mmol/L Potassium (3.5-5.1) mmol/L Chloride (98-107) mmol/L Carbon Dioxide (22-30) mmol/L Anion Gap mmol/L BUN (7-17) mg/dL Creatinine (0.52-1.04) mg/dL Est GFR (CKD-EPI)AfAm (>60 ml/min/1.73 sqM) Est GFR (CKD-EPI)NonAf (>60 ml/min/1.73 sqM) Glucose (74-99) mg/dL Lactic Ac Sepsis Rflx Y Plasma Lactic Acid Jorge Luis (0.7-2.0) mmol/L Calcium (8.4-10.2) mg/dL Magnesium (1.6-2.3) mg/dL Total Bilirubin (0.2-1.3) mg/dL AST (14-36) U/L ALT (4-34) U/L Alkaline Phosphatase (38-126) U/L Troponin I (0.000-0.034) ng/mL Total Protein (6.3-8.2) g/dL Albumin (3.5-5.0) g/dL Lipase (23-300) U/L Influenza Type A (PCR) (Not Detectd) Influenza Type B (PCR) (Not Detectd) RSV (PCR) (Not Detectd) SARS-CoV-2 (PCR) (Not Detectd) - Radiology Data Radiology results: report reviewed, image reviewed Disposition Clinical Impression: Hematemesis Disposition: HOME SELF-CARE Instructions (If sedation given, give patient instructions): Gastrointestinal Bleeding (ED), Hematemesis (ED) Additional Instructions: Return to the emergency department with any new, worsening, or concerning symptoms. Take the pantoprazole daily for the next couple of weeks. Try to take this 30 to 60 minutes before eating or taking other medications. Take the Zofran up to every 8 hours as needed for nausea and vomiting. Follow up with your primary care provider in 1-2 days. Prescriptions: Pantoprazole [Protonix] 40 mg PO DAILY #15 tab Ondansetron Odt [Zofran Odt] 4 mg PO Q8HR PRN #15 tab PRN Reason: Nausea And Vomiting Is patient prescribed a controlled substance at d/c from ED?: No Referrals: Va Fay MD [Primary Care Provider] - 1-2 days Time of Disposition: 15:52
[2023-07-04] MEDS: SODIUM CHLORIDE 0.9% 1,000 ML IV STA (14:20)
[2023-07-04] MEDS: PANTOPRAZOLE 40 MG/10 ML VIAL IVP STA (14:20)
[2023-07-04] MEDS: HYDROmorphone 0.5 MG/0.5 ML SYRINGE IVP STA (14:21)
[2023-07-04] MEDS: ACETAMINOPHEN TAB 500 MG TAB PO STA (14:21)
[2023-07-04 14:53] LABS: Basophils % (A) 1 %; Eosinophils # (A) 0.4 k/uL (0-0.7); Eosinophils % (A) 4 %; HCT 40.1 % (34.0-46.0); Lymphocytes # (A) 1.7 k/uL (1.0-4.8); Lymphocytes % (A) 19 %; MCH 28.9 pg (25.0-35.0); MCHC 32.5 g/dL (31.0-37.0); MCV 89.1 fL (80.0-100.0); Mean Platelet Volume 7.8; Monocytes # (A) 0.4 k/uL (0-1.0); Monocytes % (A) 4 %; Neutrophils # (A) 6.3 k/uL (1.3-7.7); Neutrophils % (A) 71 %; Platelet Count 317 k/uL (150-450); RBC 4.49 m/uL (3.80-5.40); RDW 14.1 % (11.5-15.5); WBC 8.9 k/uL (3.8-10.6)
[2023-07-04 15:08] LABS: ALT 15 U/L (4-34); AST 23 U/L (14-36); African American GFR (CKD) >90 (>60 ml/min/1.73 sqM); Albumin 4.2 g/dL (3.5-5.0); Alkaline Phosphatase 121 U/L (38-126); Anion Gap 7 mmol/L; Blood Urea Nitrogen 19 mg/dL (7-17); Calcium 9.4 mg/dL (8.4-10.2); Carbon Dioxide 20 mmol/L (22-30); Chloride 112 mmol/L (98-107); Glucose 117 mg/dL (74-99); Lipase 216 U/L (23-300); Magnesium 1.8 mg/dL (1.6-2.3); Non-African American GFR(CKD) >90 (>60 ml/min/1.73 sqM); Potassium 4.3 mmol/L (3.5-5.1); Sodium 139 mmol/L (137-145); Total Bilirubin 0.3 mg/dL (0.2-1.3); Total Protein 7.2 g/dL (6.3-8.2)
[2023-07-04 15:15] LABS: INR 0.9 (<1.2); Partial Thromboplastin Time 25.6 sec (22.0-30.0); Prothrombin Time 10.1 sec (10.0-12.5)
--- NOTE | 2023-07-04 15:49 | CT ---
EXAMINATION: CTA ABDOMEN AND PELVIS WITH IV CONTRAST DATE OF EXAMINATION: 07/04/2023. COMPARISON: None available. INDICATION: Nausea and vomiting with hematemesis. PROCEDURE: Axial CT of the abdomen and pelvis was performed without and with contrast and sagittal a nd coronal reformatted images were performed. 100 mL of Isovue-[address] dose lowering techniques were used, to include: automated exposure control, adjustment for patient size, a nd/or use of iterative reconstruction. Maximum intensity projection reformats were also performed. FINDINGS: LOWER CHEST : The visualized lung bases are clear. There are no pleural or pericardial effusions. ABDOMEN: Liver and Biliary system: Normal. Adrenal glands: Normal. Kidneys and ureters: Normal. Spleen: Normal. Pancreas: Normal. Gallbladder: Normal. Lymph nodes, Peritoneum and mesentery: There is no mesenteric or retroperitoneal lymphadenopathy. Gastrointestinal tract: There are no dilated loops of bowel or free intraperitoneal air. The appe ndix is normal. Mild sigmoid diverticulosis without evidence of diverticulitis. There appears to be a janey of thickening within the antral region of the stomach of indeterminate significance. Direct visua lization would be recommended. Aorta/IVC: There is moderate to significant vascular calcification and plaque seen throughout the a bdominal aorta without evidence of aneurysmal dilation or dissection. IVC normal. Abdominal wall: Normal. PELVIS: Fluid: There is no free fluid in the pelvis. Lymph Nodes: There is no pelvic or inguinal lymphadenopathy.. Urinary bladder: Normal. BONES: There are no osseous destructive lesions.. ADDITIONAL SIGNIFICANT FINDINGS: None. IMPRESSION: 1. No definitive active GI bleeding identified. 2. Question possible area of thickening within the antral region of the stomach of indeterminate etio logy. Recommend direct visualization to exclude malignancy.
[2023-07-04 16:52] VITALS: BP 169/87; PULSE 87; TEMP 98.7
== END 2023-07-04 16:22 | disposition home or self-care (01) ==
LOC: EC 13:22
DX: K92.0 Hematemesis (principal); E86.0 Dehydration; R74.02 Elevation of levels of lactic acid dehydrogenase [LDH]; I48.91 Unspecified atrial fibrillation; I10 Essential (primary) hypertension; F17.200 Nicotine dependence, unspecified, uncomplicated; F12.90 Cannabis use, unspecified, uncomplicated; Z79.01 Long term (current) use of anticoagulants; Z79.899 Other long term (current) drug therapy; Z91.040 Latex allergy status; Z95.0 Presence of cardiac pacemaker
CPT/HCPCS: 99285; 96374; 96375; 96361; 36415; 93005; 80053; 83605; 83690; 83735; 84484; 85025; 85610; 85730; 87636; 74174; C9113; J1170; Q9967; 99406

== ENCOUNTER 2024-02-02 20:57 | Emergency (ER) | payer SELFPAY ==
[2024-02-02 21:03] VITALS: RESP 18
--- NOTE | 2024-02-02 23:23 | ED ---
Back Pain [facility] - General Chief Complaint: Back Pain/Injury Stated Complaint: Back Pain,Nausea Time Seen by Provider: 02/02/24 23:23 Source: patient, RN notes reviewed Mode of arrival: ambulatory Limitations: no limitations - History of Present Illness Initial Comments: 63-year-old female presented to the ER with a chief complaint of back pain. She does report a history of chronic back pain and is having difficulty following up with a automotive paint technician. She states past couple of days she has had an increase in this thoracic back pain. She does have some radiation to her lumbar spine. She denies any new injuries or traumas. She has taken [id number]-[id number] medications without relief. She denies any bowel or bladder incontinence, saddle paresthesias, radiation of pain, weakness or other complaints. - Related Data Home Medications Medication Instructions Recorded Confirmed Albuterol Sulfate [Proair Hfa] 2 puff INHALATION RT-Q4H PRN 06/17/21 06/17/21 Amitriptyline HCl [Elavil] 100 mg PO HS 06/17/21 06/17/21 Apixaban [Eliquis] 5 mg PO BID 06/17/21 06/17/21 Atorvastatin Calcium [Lipitor] 40 mg PO HS 06/17/21 06/17/21 Butalb/Acetaminophen/Caffeine 1 tab PO QID PRN 06/17/21 06/17/21 [Esgic 50-325-40 mg Tablet] Cyclobenzaprine [Flexeril] 10 mg PO TID PRN 06/17/21 06/17/21 Levothyroxine Sodium [Synthroid] 25 mcg PO MOTUWETHFRSA 06/17/21 06/17/21 Levothyroxine Sodium [Synthroid] 50 mcg PO YUNG 06/17/21 06/17/21 Sertraline HCl [Zoloft] 200 mg PO DAILY 06/17/21 06/17/21 atenoloL [Tenormin] 25 mg PO DAILY 06/17/21 06/17/21 lamoTRIgine 200 mg PO DAILY 06/17/21 06/17/21 Previous Rx's Medication Instructions Recorded Ondansetron Odt [Zofran Odt] 4 mg PO Q8HR PRN #10 tab 06/17/21 Albuterol Sulfate [Albuterol 1 puff PO Q4-6H PRN #8.5 gm 04/13/22 Sulfate Hfa] Azithromycin [Zithromax Z Pack] 1 tab PO DIRECTED #6 tab 04/13/22 methylPREDNISolone Dose Pack 4 mg PO DIRECTED #1 packet 04/13/22 [Medrol Dose Pack] Amoxic-Pot Clav 875-125Mg 1 tab PO Q12HR 10 Days #20 tab 03/04/23 [Augmentin 875-125] HYDROcodone/APAP 5-325MG [[place] 1 tab PO Q6HR PRN 3 Days #12 tab 03/04/23 5-325] Ondansetron Odt [Zofran Odt] 4 mg PO Q8HR PRN #15 tab 07/04/23 Pantoprazole [Protonix] 40 mg PO DAILY #15 tab 07/04/23 Lidocaine 4% Patch 1 patch TOPICAL DAILY #30 patch 02/03/24 Allergies Allergy/AdvReac Type Severity Reaction Status Date / Time latex Allergy Rash/Hives Verified 02/02/24 21:03 Review of Systems ROS Statement: Those systems with pertinent positive or pertinent negative responses have been documented in the HPI. ROS Other: All systems not noted in ROS Statement are negative. Past Medical History Past Medical History: Hypertension History of Any Multi-Drug Resistant Organisms: None Reported Past Surgical History: Pacemaker Past Psychological History: Bipolar, PTSD Smoking Status: Current some day smoker Past Alcohol Use History: None Reported Past Drug Use History: Marijuana General Exam Limitations: no limitations General appearance: alert, in no apparent distress Neck exam: Present: normal inspection. Absent: tenderness, meningismus, lymphadenopathy Respiratory exam: Present: normal lung sounds bilaterally. Absent: respiratory distress, wheezes, rales, rhonchi, stridor Cardiovascular Exam: Present: regular rate, normal rhythm, normal heart sounds. Absent: systolic murmur, diastolic murmur, rubs, gallop, clicks Extremities exam: Present: normal inspection, full ROM, normal capillary refill. Absent: tenderness, pedal edema, joint swelling, calf tenderness Back exam: Present: tenderness (Just lateral T10-T12 overlying ribs. No overlying skin changes. No paradoxical chest wall motions.) Course Vital Signs 02/02/24 02/03/24 21:02 04:16 Temperature 97.8 F 97.9 F Pulse Rate 74 82 Respiratory 18 18 Rate Blood Pressure 163/89 125/81 O2 Sat by Pulse 98 98 Oximetry Medical Decision Making - Medical Decision Making Was pt. sent in by a medical professional or institution (AUDRA Lombardo, ENGINE ROOM OPERATOR, urgent care, hospital, or [facility]...) When possible be specific @ -No Did you speak to anyone other than the patient for history (EMS, parent, family, police, friend...)? What history was obtained from this source @ -No Did you review nursing and triage notes (agree or disagree)? Why? @ -I reviewed and agree with nursing and triage notes Were old charts reviewed (outside hosp., previous admission, EMS record, old EKG, old radiological studies, urgent care reports/EKG's, [facility] records)? Report findings @ -No old charts were reviewed Differential Diagnosis (chest pain, altered mental status, abdominal pain women, abdominal pain men, vaginal bleeding, weakness, fever, dyspnea, syncope, headache, dizziness, GI bleed, back pain, seizure, CVA, palpatations, mental health, musculoskeletal)? @ -Differential Back Pain: Strain, zoster, cauda equina syndrome, epidural abscess, vertebral osteomyelitis, discitis, fracture, subluxation, disc herniation, DJD, spinal stenosis, dissection, AAA, pancreatitis, peptic ulcer disease, pyelonephritis, kidney stone, this is not meant to be an all-inclusive list. EKG interpreted by me (3pts min.). @ -None done X-rays interpreted by me (1pt min.). @ -Thoracic spine x-rays negative for acute process. Left ribs x-ray is negative for acute fractures or dislocations. CT interpreted by me (1pt min.). @ -None done U/S interpreted by me (1pt. min.). @ -None done What testing was considered but not performed or refused? (CT, X-rays, U/S, labs)? Why? @ -None What meds were considered but not given or refused? Why? @ -None Did you discuss the management of the patient with other professionals (professionals i.e. AUDRA Lombardo, ENGINE ROOM OPERATOR, lab, RT, psych nurse, social services specialist, charge weigher, teacher, enforcement officer, shoe parts caser)? Give summary @ -No Was smoking cessation discussed for >3mins.? @ -No Was critical care preformed (if so, how long)? @ -No Were there social determinants of health that impacted care today? How? (Homelessness, low income, unemployed, alcoholism, drug addiction, transportation, low edu. Level, literacy, decrease access to med. care, longterm, rehab)? @ -No Was there de-escalation of care discussed even if they declined (Discuss DNR or withdrawal of care, Hospice)? DNR status @ -No What co-morbidities impacted this encounter? (DM, HTN, Smoking, COPD, CAD, Cancer, CVA, ARF, Chemo, Hep., AIDS, mental health diagnosis, sleep apnea, morbid obesity)? @ -Chronic back pain Was patient admitted / discharged? Hospital course, mention meds given and route, prescriptions, significant lab abnormalities, going to OR and other pertinent info. @ -Discharged. 63-year-old female presented to the ER with a chief complaint of thoracic back pain. She states this is chronic in nature and she is currently having a flareup. History and physical exam completed. Vitals within normal limits. Exam remarkable for tenderness to palpation of ribs just lateral to T10-12. No overlying skin changes. Pain is worse with motion and palpation. No red flag back pain symptoms indicative cauda equina syndrome. Patient received IM Toradol, Dilaudid and lidocaine patch in the ER for pain control. X-rays obtained negative for acute process. Upon reevaluation, patient resting comfortably exam with no signs of acute distress. Patient discharged with ibuprofen and Tylenol 3 starter pack. Patient stable for discharge at this time. Strict return parameters discussed. Patient discharged in stable condition with follow-up to PCP. Patient verbally expressed understanding and agreement with care plan. Case discussed with ED attending, Dr. Griffith. Undiagnosed new problem with uncertain prognosis? @ -No Drug Therapy requiring intensive monitoring for toxicity (Heparin, Nitro, Insulin, Cardizem)? @ -No Were any procedures done? @ -No Diagnosis/symptom? @ -Back pain Acute, or Chronic, or Acute on Chronic? @ -Acute on chronic Uncomplicated (without systemic symptoms) or Complicated (systemic symptoms)? @ -Uncomplicated Side effects of treatment? @ -No Exacerbation, Progression, or Severe Exacerbation? @ -No Poses a threat to life or bodily function? How? (Chest pain, [place], [place], pneumonia, PE, COPD, DKA, ARF, appy, cholecystitis, CVA, Diverticulitis, Homicidal, Suicidal, threat to staff... and all critical care pts) @ -No - Radiology Data Radiology results: report reviewed, image reviewed Disposition Clinical Impression: Back pain Disposition: HOME SELF-CARE Condition: Stable Instructions (If sedation given, give patient instructions): Acute Low Back Pain (ED) Additional Instructions: Continue take [id number] Tylenol and ibuprofen for pain control. Do not take Tylenol threes with [id number] Tylenol. Follow-up with PCP. Return to the ER for any new or worsening concerns. Prescriptions: Lidocaine 4% Patch 1 patch TOPICAL DAILY #30 patch Is patient prescribed a controlled substance at d/c from ED?: No Referrals: Va Fay MD [Primary Care Provider] - 1-2 days Wenceslao Fairbanks MD [STAFF PHYSICIAN] - 1-2 days Time of Disposition: 03:25
[2024-02-02] MEDS: KETOROLAC 15 MG/ML 1 ML VIAL IM STA (23:50)
[2024-02-02] MEDS: LIDOCAINE 4% PATCH TOPICAL ONE (23:52)
--- NOTE | 2024-02-03 02:53 | XR ---
EXAM: XR Left Ribs and AP Chest, 3 or More Views CLINICAL HISTORY: [email or web address] XR Reason: pain TECHNIQUE: Frontal and oblique views of the left ribs and frontal view of the chest. COMPARISON: None FINDINGS: Lungs: Unremarkable. No consolidation. Pleural space: Unremarkable. No pneumothorax. Heart: Unremarkable. No cardiomegaly. Mediastinum: Unremarkable. Normal mediastinal contour. Bones/joints: Unremarkable. No displaced rib fracture identified. Vasculature: Atherosclerotic changes in aorta. Tubes, lines and devices: Left sided pacemaker. IMPRESSION: No displaced rib fracture identified.
--- NOTE | 2024-02-03 02:54 | XR ---
EXAM: XR Thoracic Spine, 2 Views CLINICAL HISTORY: [email or web address] XR Reason: pain TECHNIQUE: Frontal and lateral views of the thoracic spine. COMPARISON: None FINDINGS: Bones: No vertebral body height loss to suggest acute fracture. No subluxation. Soft tissues: No acute finding. IMPRESSION: No acute fracture or subluxation.
[2024-02-03] MEDS: HYDROmorphone 0.5 MG/0.5 ML SYRINGE IM STA (03:01)
[2024-02-03] MEDS: ACET/COD 300 MG/30 MG STARTER PACK 6 TAB BTL PO STA (04:14)
[2024-02-03] MEDS: IBUPROFEN 600 MG STARTER PACK 4 TAB BTL PO STA (04:14)
[2024-02-03 04:18] VITALS: BP 125/81; PULSE 82; TEMP 97.9
== END 2024-02-03 04:17 | disposition home or self-care (01) ==
LOC: EC 20:57
CPT/HCPCS: 72070; 96372; 99283